=== PATIENT | female | born 1950 | race Caucasian/White ===

== ENCOUNTER 2023-06-05 13:12 | Outpatient (OUT) | payer MEDICARE, OTHER, SELFPAY ==
--- NOTE | 2023-06-05 13:16 | MM_ITS ---
Patient Name: KAHLIL MALONE MR#: [id number] : 1950 Exam Date: 06/05/2023 Ordering Doctor: DR VANI RODRÍGUEZ RADIOLOGY REPORT PROCEDURE: MM TOMOSYNTHESIS SCREENING BI COMPARISON: MG MAMM SCREEN BOONE W CAD, 03/21/2019. MG MAMM SCREEN BOONE W CAD, 03/15/2018. MG MAMM SCREEN BOONE W CAD, 03/02/2017. MG MAMM LT UNI W CAD DIG, 12/20/2012. INDICATIONS: Screening Calculator Name NCI Breast Cancer Risk Assessment Tool 5 Year Breast Cancer Risk 1.50% Lifetime Breast Cancer Risk 4.50% Personal Breast Cancer No Personal Ovarian Cancer No Treatments None Family Cancers None LOCATION: [facility] BREAST COMPOSITION: Extremely dense, which lowers the sensitivity of mammography. FINDINGS: DIAGNOSTIC CATEGORY 2--BENIGN FINDING: RIGHT BREAST: No significant suspicious finding. Innumerable scattered benign-appearing calcifications which continue to increase in number. LEFT BREAST: No significant suspicious finding. Innumerable scattered benign-appearing calcifications which continue to increase in number. RECOMMENDATIONS: ROUTINE MAMMOGRAM AND CLINICAL EVALUATION IN 12 MONTHS. PLEASE NOTE: A NORMAL MAMMOGRAM DOES NOT EXCLUDE THE POSSIBILITY OF BREAST CANCER. A CLINICALLY SUSPICIOUS PALPABLE LUMP SHOULD BE BIOPSIED. Dictated by: Raad Singh M.D. on 06/05/2023 at 15:28 Approved by: Raad Singh M.D. on 06/05/2023 at 15:32
--- NOTE | 2023-06-05 13:17 | US_ITS ---
The [address] [address] Patient Name: KAHLIL MALONE MRN: [id number] date: 1950 Sex: F Assigned Patient Location: MAMMO Current Patient Location: Accession/Order Number: [id number] Exam Date: 06/05/2023 13:20 Report Date: 06/07/2023 12:36 At the request of: VANI MULLER Procedure: US extremity nonvascular RT EXAMINATION: US extremity nonvascular RT HISTORY: Pain In Right Axilla M79.621 , lump for one month COMPARISON: No relevant comparison available. FINDINGS: 1. Slightly hyperechoic lymph node within right axilla 1.6 x 1.5 x 0.7 cm. US/US extremity nonvascular RT IMPRESSION: 1. Slightly prominent lymph node within right axilla corresponding to patient's palpable lump and area of tenderness; likely reactive. Consider follow-up ultrasound evaluation in 3-4 weeks if symptoms persist. Electronically authenticated by: JERRELL SHEN Date: 06/07/2023 12:36
== END 2023-06-05 13:13 | disposition home or self-care (01) ==
LOC: MAMMO 13:13
PROVIDERS: PCP Internal Medicine; Visit Provider Physician Assistant
DX: Z12.31 Encounter for screening mammogram for malignant neoplasm of breast (principal); M79.621 Pain in right upper arm; R59.0 Localized enlarged lymph nodes
CPT/HCPCS: 76882; 77063; 77067

== ENCOUNTER 2023-11-12 12:50 | Outpatient (OUT) | payer MEDICARE, OTHER, SELFPAY ==
--- OUTSIDE RECORDS SUMMARY | 2023-11-12 12:57 | XMS_ITS | CCD ---
Author Organization [facility] Care Team Providers Care Splunk Dashboard Developer Name Role Phone DR CHELA MENDOSA Admitting Unavailable DR CHELA MENDOSA Attending Unavailable DR CHELA MENDOSA Consulting Unavailable DR CHELA MENDOSA Primary Care Unavailable VANI MULLER Attending Unavailable VANI MULLER Attending Unavailable CHELA MENDOSA Attending Unavailable Allergies Allergy Classification Reported Allergen(s) Allergy Type Date of Onset Reaction(s) Facility (1 source) Penicillins Drug allergy (disorder) 6 [facility] (1 source) Sulfamethoxazole / Trimethoprim Drug Allergy 6 [facility] Problems Problem Classification Problem Date Documented Da te Episodic/Chronic Administrative/social admission (1 source) Other specified counseling; Translations: [OTHER SPECIFIED COUNSELING] Onset: 03-19-2022 Episodic Disorders of lipid metabolism (1 source) Mixed hyperlipidemia; Translations: [MIXED HYPERLIPIDEMIA] Onset: 03-19-2022 Chronic Osteoporosis (1 source) Age-related osteoporosis without current pathological fracture; Translations: [AGE-REL OSTEOPOR W/O CURR PATH FX] Onset: 03-19-2022 Chronic Other gastrointestinal disorders (1 source) Irritable bowel syndrome without diarrhea; Translations: [IRRITABLE BOWEL SYND W/O DIARRHEA] Onset: 03-19-2022 Chronic Other screening for suspected conditions (not mental disorders or infectious disease) (1 source) Abnormal results of thyroid function studies; Translations: [ABNORMAL RESULTS THR FUNCTION STDY] Onset: 03-19-2022 Episodic Spondylosis; intervertebral disc disorders; other back problems (1 source) Other spondylosis with radiculopathy, lumbar region; Translations: [OTH SPONDYLS RADICULOPATHY LUMB RGN] Onset: 03-19-2022 Chronic Spondylosis; intervertebral disc disorders; other back problems (1 source) Radiculopathy, site unspecified; Translations: [RADICULOPATHY SITE UNSPECIFIED] Onset: 03-19-2022 Episodic Results Test Name Value Interpretation Reference Range Facility CBC AUTO DIFFon 03-10-2022 BASO # 0.0 103/ul Normal 0.0-0.1 [facility] Comment on above: Performed By: #### C BC #### [facility] [address] [address] [address] Connor Shirley Basophils/100 WBC (Bld) 0.6 % Normal 0.2-2.0 [facility] Comment on above: Performed By: #### C BC #### [facility] [address] [address] [address] Connor Shirley EO # 0.1 103/ul Normal 0.0-0.7 [facility] Comment on above: Performed By: #### C BC #### [facility] [address] [place] [address] Dr. Connor Shirley Eosinophils/100 WBC (Bld) 1.0 % Normal 0.9-7.0 [facility] Comment on above: Performed By: #### C BC #### [facility] [address] [address] [address] Connor Shirley Erythrocyte distribution width (RBC) [Ratio] 13.0 % Normal 11.0-15.0 [facility] Comment on above: Performed By: #### C BC #### [facility] [address] [place] [address] Dr. Connor Shirley Hematocrit (Bld) [Volume fraction] 40.3 % Normal 36.0-48.0 [facility] Comment on above: Performed By: #### C BC #### [facility] [address] [address] [address] Connor Shirley Hemoglobin (Bld) [Mass/Vol] 13.1 g/dL Normal 12.0-16.0 [facility] Comment on above: Performed By: #### C BC #### [facility] [address] [place] [address] Dr. Connor Shirley IG # 0.02 10e3/ul Normal 0.00-0.03 [facility] Comment on above: Performed By: #### C BC #### [facility] [address] [place] [address] Dr. Connor Shirley IG % 0.3 % Normal 0.0-0.5 [facility] Comment on above: Performed By: #### C BC #### [facility] [address] [place] [address] Dr. Connor Shirley LYMPH # 2.5 103/ul Normal 1.2-3.8 [facility] Comment on above: Performed By: #### C BC #### [facility] [address] [place] [address] Dr. Connor Shirley Lymphocytes/100 WBC (Bld) 36.5 % Normal 20.5-60.0 [facility] Comment on above: Performed By: #### C BC #### [facility] [address] [place] [address] Dr. Connor Shirley MANUAL DIFF REQ NO Normal [facility] Comment on above: Performed By: #### C BC #### [facility] [address] [place] [address] Dr. Connor Shirley MCH (RBC) [Entitic mass] 32.3 pg Normal 26.7-34.0 [facility] Comment on above: Performed By: #### C BC #### [facility] [address] [place] [address] Dr. Connor Shirley MCHC (RBC) [Mass/Vol] 32.5 g/dL Normal 29.9-35.2 [facility] Comment on above: Performed By: #### C BC #### [facility] [address] [place] [address] Dr. Connor Shirley MCV (RBC) [Entitic vol] 99.3 fL Critically high 81.0-99.0 [facility] Comment on above: Performed By: #### C BC #### [facility] [address] [place] [address] Dr. Connor Shirley MONO # 0.3 103/ul Normal 0.3-0.8 [facility] Comment on above: Performed By: #### C BC #### [facility] [address] [place] [address] Dr. Connor Shirley Monocytes/100 WBC (Bld) 4.9 % Normal 1.7-12.0 [facility] Comment on above: Performed By: #### C BC #### [facility] [address] [place] [address] Dr. Connor Shirley NEUT # 3.8 103/ul Normal 1.4-6.5 [facility] Comment on above: Performed By: #### C BC #### [facility] [address] [place] [address] Dr. Connor Shirley Neutrophils/100 WBC (Bld) 56.7 % Normal 43.0-75.0 [facility] Comment on above: Performed By: #### C BC #### [facility] [address] [place] [address] Dr. Connor Shirley Platelet mean volume (Bld) [Entitic vol] 9.0 fL Critically low 9.5-13.5 [facility] Comment on above: Performed By: #### C BC #### [facility] [address] [place] [address] Dr. Connor Shirley PLT 258 103/ul Normal 150-450 [facility] Comment on above: Performed By: #### C BC #### [facility] [address] [place] [address] Dr. Connor Shirley RBC 4.06 106/ul Critically low 4.20-5.40 [facility] Comment on above: Performed By: #### C BC #### [facility] [address] [place] [address] Dr. Connor Shirley WBC 6.8 103/ul Normal 4.0-11.0 [facility] Comment on above: Performed By: #### C BC #### [facility] [address] [place] [address] Dr. Connor Shirley FREE T4on 03-10-2022 Free T4 [Mass/Vol] 1.10 ng/dL Normal 0.76-1.46 [facility] Comment on above: Performed By: #### F T4 #### [facility] [address] [place] [address] Dr. Connor Shirley LIPID PROFILEon 03-10-2022 CHOL-HDL RATIO NORM SEE BELOW Normal [facility] Comment on above: Result Comment: 3.3 - 4.4 LOW RISK 4.4 - 7.1 AVERAGE RISK 7.1 - 11.0 MODERATE RISK >11.0 HIGH RISK Performed By: #### C MP, TSH, LIPID #### [facility] [address] [address] [address] Connor Shirley Cholesterol [Mass/Vol] 169 mg/dL Normal <=200 [facility] Comment on above: Performed By: #### C MP, TSH, LIPID #### [facility] [address] [address] [address] Connor Shirley Cholesterol in HDL [Mass/Vol] 87 mg/dL Critically high 40-60 [facility] Comment on above: Performed By: #### C MP, TSH, LIPID #### [facility] [address] [address] [address] Connor Shirley Cholesterol in LDL [Mass/Vol] 64.6 mg/dL Normal [facility] Comment on above: Performed By: #### C MP, TSH, LIPID #### [facility] [address] [address] [address] Connor Shirley Cholesterol.total/C holesterol in HDL [Mass ratio] 1.9 {ratio} Normal [facility] Comment on above: Performed By: #### C MP, TSH, LIPID #### [facility] [address] [address] [address] Connor Shirley HDL NORMAL > or = 60 mg/dl - LO W CARDIOVASCULAR RISK <40 mg/dl - HIGH CARDIOVASCULAR RISK Normal [facility] Comment on above: Performed By: #### C MP, TSH, LIPID #### [facility] [address] [address] [address] Connor Shirley LDL CALC NORMAL SEE BELOW Normal [facility] Comment on above: Result Comment: <100 mg/dl OPTIMAL 100 - 129 mg/dl NEAR OR ABOVE OPTIMAL 130 - 159 mg/dl BORDERLINE HIGH 160 - 189 mg/dl HIGH >190 mg/dl VERY HIGH Performed By: #### C MP, TSH, LIPID #### [facility] [address] [address] [address] Connor Shirley Triglyceride [Mass/Vol] 87 mg/dL Normal <=150 [facility] Comment on above: Performed By: #### C MP, TSH, LIPID #### [facility] [address] [address] [address] Connor Shirley VLDL CALC 17.4 mg/dL Normal [facility] Comment on above: Performed By: #### C MP, TSH, LIPID #### [facility] [address] [address] [address] Connor Shirley PROF 14(COMP METB)on 022 Albumin [Mass/Vol] 4.5 g/dL Normal 3.4-5.0 [facility] Comment on above: Performed By: #### C MP, TSH, LIPID #### [facility] [address] [place] [address] Dr. Connor Shirley Albumin/Globulin [Mass ratio] 1.5 {ratio} Normal [facility] Comment on above: Performed By: #### C MP, TSH, LIPID #### [facility] [address] [address] [address] Connor Shirley ALP [Catalytic activity/Vol] 50 U/L Normal 46-116 [facility] Comment on above: Performed By: #### C MP, TSH, LIPID #### [facility] [address] [address] [address] Connor Shirley ALT [Catalytic activity/Vol] 24 U/L Normal 14-59 [facility] Comment on above: Performed By: #### C MP, TSH, LIPID #### [facility] [address] [address] [address] Connor Shirley Anion gap [Moles/Vol] 10.9 mmol/L Normal [facility] Comment on above: Performed By: #### C MP, TSH, LIPID #### [facility] [address] [address] [address] Connor Shirley AST [Catalytic activity/Vol] 18 U/L Normal 15-37 [facility] Comment on above: Performed By: #### C MP, TSH, LIPID #### [facility] [address] [address] [address] Connor Shirley Bilirubin [Mass/Vol] 1.2 mg/dL Critically high 0.2-1.0 [facility] Comment on above: Performed By: #### C MP, TSH, LIPID #### [facility] [address] [place] [address] Dr. Connor Shirley Calcium [Mass/Vol] 9.8 mg/dL Normal 8.5-10.1 [facility] Comment on above: Performed By: #### C MP, TSH, LIPID #### [facility] [address] [address] [address] Connor Shirley Chloride [Moles/Vol] 103 mmol/L Normal 98-107 [facility] Comment on above: Performed By: #### C MP, TSH, LIPID #### [facility] [address] [place] [address] Dr. Connor Shirley CO2 [Moles/Vol] 31.2 mmol/L Normal 21.0-32.0 [facility] Comment on above: Performed By: #### C MP, TSH, LIPID #### [facility] [address] [place] [address] Dr. Connor Shirley Creatinine [Mass/Vol] 0.60 mg/dL Normal 0.55-1.02 [facility] Comment on above: Performed By: #### C MP, TSH, LIPID #### [facility] [address] [place] [address] Dr. Connor Shirley EGFR-AF SLOVENIAN >60 Normal >=60 [facility] Comment on above: Performed By: #### C MP, TSH, LIPID #### [facility] [address] [place] [address] Dr. Connor Shirley EGFR-NON AF SLOVENIAN >60 Normal >=60 [facility] Comment on above: Performed By: #### C MP, TSH, LIPID #### [facility] [address] [place] [address] Dr. Connor Shirley Globulin (S) [Mass/Vol] 3.1 g/dL Normal [facility] Comment on above: Performed By: #### C MP, TSH, LIPID #### [facility] [address] [place] [address] Dr. Connor Shirley Glucose [Mass/Vol] 103 mg/dL Normal 74-106 [facility] Comment on above: Performed By: #### C MP, TSH, LIPID #### [facility] [address] [place] [address] Dr. Connor Shirley Potassium [Moles/Vol] 4.1 mmol/L Normal 3.5-5.1 [facility] Comment on above: Performed By: #### C MP, TSH, LIPID #### [facility] [address] [place] [address] Dr. Connor Shirley Protein [Mass/Vol] 7.6 g/dL Normal 6.4-8.2 [facility] Comment on above: Performed By: #### C MP, TSH, LIPID #### [facility] [address] [place] [address] Dr. Connor Shirley Sodium [Moles/Vol] 141 mmol/L Normal 136-145 [facility] Comment on above: Performed By: #### C MP, TSH, LIPID #### [facility] [address] [place] [address] Dr. Connor Shirley Urea nitrogen [Mass/Vol] 17.0 mg/dL Normal 7.0-18.0 [facility] Comment on above: Performed By: #### C MP, TSH, LIPID #### [facility] [address] [place] [address] Dr. Connor Shirley Urea nitrogen/Creatinine [Mass ratio] 28.3 mg/mg Normal [facility] Comment on above: Performed By: #### C MP, TSH, LIPID #### [facility] [address] [place] [address] Dr. Connor Shirley TSHon 03-10-2022 TSH 3.755 uIU/mL Critically high 0.358-3.740 [facility] Comment on above: Performed By: #### C MP, TSH, LIPID #### [facility] [address] [place], [place] [address] Dr. Connor Shirley [facility] Metabolic [facility] 03-07-2021 Albumin [Mass/Vol] 5.0 g/dL Normal 3.6-5.1 [facility] Comment on above: Performed By: #### C MP, FT3, LIPD, TSH, FT4 #### [facility] [address] [place] [address], [place] [id number] Albumin/Globulin [Mass ratio] 2.2 {ratio} Normal 1.0-2.5 [facility] Comment on above: Performed By: #### C MP, FT3, LIPD, TSH, FT4 #### [facility] [address] [place], [place] [id number] ALP [Catalytic activity/Vol] 61 U/L Normal 35-119 [facility] Comment on above: Performed By: #### C MP, FT3, LIPD, TSH, FT4 #### [facility] [address] [place], [place] [id number] ALT [Catalytic activity/Vol] 23 U/L Normal 6-33 [facility] Comment on above: Result Comment: 02/20 Female reference range changed. Performed By: #### C MP, FT3, LIPD, TSH, FT4 #### [facility] [address] [place], [place] [id number] Anion gap [Moles/Vol] 18 mmol/L Normal 12-20 [facility] Comment on above: Result Comment: Effe ctive 03/28/2019 reference range changed. Performed By: #### C MP, FT3, LIPD, TSH, FT4 #### [facility] [address] [place], [place] [id number] AST [Catalytic activity/Vol] 20 U/L Normal 9-34 [facility] Comment on above: Performed By: #### C MP, FT3, LIPD, TSH, FT4 #### [facility] [address] [place], [place] [id number] Bilirubin [Mass/Vol] 0.94 mg/dL Normal 0.30-1.20 [facility] Comment on above: Performed By: #### C MP, FT3, LIPD, TSH, FT4 #### [facility] [address] [place], [place] [id number] BUN/CREA 28 Ratio High 6-22 [facility] Comment on above: Performed By: #### C MP, FT3, LIPD, TSH, FT4 #### [facility] [address] [place], [place] [id number] Calcium [Mass/Vol] 10.9 mg/dL High 8.6-10.2 [facility] Comment on above: Performed By: #### C MP, FT3, LIPD, TSH, FT4 #### [facility] [address] [place], [place] [id number] Chloride [Moles/Vol] 106 mmol/L Normal 98-107 [facility] Comment on above: Performed By: #### C MP, FT3, LIPD, TSH, FT4 #### [facility] [address] [place], [place] [id number] CO2 [Moles/Vol] 25 mmol/L Normal 20-31 [facility] Comment on above: Performed By: #### C MP, FT3, LIPD, TSH, FT4 #### [facility] [address] [place], [place] [id number] Creatinine [Mass/Vol] 0.5 mg/dL Low 0.6-1.4 [facility] Comment on above: Performed By: #### C MP, FT3, LIPD, TSH, FT4 #### [facility] [address] [place], [place] [id number] eGFRAA 136 mL/min/1.73m2 Normal >60 [facility] Comment on above: Performed By: #### C MP, FT3, LIPD, TSH, FT4 #### [facility] [address] [place], [place] [id number] eGFRNAA 112 mL/min/1.73m2 Normal >60 [facility] Comment on above: Performed By: #### C MP, FT3, LIPD, TSH, FT4 #### [facility] [address] [place], [place] [id number] Globulin (S) [Mass/Vol] 2.3 g/dL Normal 1.9-3.7 [facility] Comment on above: Performed By: #### C MP, FT3, LIPD, TSH, FT4 #### [facility] [address] [place], [place] [id number] Glucose [Mass/Vol] 104 mg/dL High 65-99 [facility] Comment on above: Result Comment: For FASTING Glucose --- ADA reference ranges: Normal 65-99 mg/dl Prediabetes 100-125 Diabetes >/= 126 Performed By: #### C MP, FT3, LIPD, TSH, FT4 #### [facility] [address] [place], [place] [id number] Potassium [Moles/Vol] 4.5 mmol/L Normal 3.5-5.5 [facility] Comment on above: Performed By: #### C MP, FT3, LIPD, TSH, FT4 #### [facility] [address] [place], [place] [id number] Protein [Mass/Vol] 7.3 g/dL Normal 6.1-8.1 [facility] Comment on above: Performed By: #### C MP, FT3, LIPD, TSH, FT4 #### [facility] [address] [place], [place] [id number] Sodium [Moles/Vol] 144 mmol/L Normal 135-146 [facility] Comment on above: Performed By: #### C MP, FT3, LIPD, TSH, FT4 #### [facility] [address] [place], [place] [id number] Urea nitrogen [Mass/Vol] 15 mg/dL Normal 7-25 [facility] Comment on above: Performed By: #### C MP, FT3, LIPD, TSH, FT4 #### [facility] [address] [place], [place] [id number] Free T3on 03-07-2021 FT3 2.92 pg/mL Normal 2.00-4.40 [facility] Comment on above: Performed By: #### C MP, FT3, LIPD, TSH, FT4 #### [facility] [address] [place], [place] [id number] Free T4on 03-07-2021 Free T4 [Mass/Vol] 1.14 ng/dL Normal 0.80-1.80 [facility] Comment on above: Performed By: #### C MP, FT3, LIPD, TSH, FT4 #### [facility] [address] [place], [place] [id number] Lipid Panelon 03-07-2021 Cholesterol [Mass/Vol] 201 mg/dL High 125-200 [facility] Comment on above: Result Comment: Low risk < 200mg/dL Borderline risk 201-239 mg/dl High risk > or equal to 240 Performed By: #### C MP, FT3, LIPD, TSH, FT4 #### [facility] [address] [place], [place] [id number] Cholesterol in HDL [Mass/Vol] 73 mg/dL Normal >40 [facility] Comment on above: Result Comment: High Cardiovascular Risk HDL <40 mg/dL Low Cardiovascular Risk HDL > or equal to 60 mg/dl Performed By: #### C MP, FT3, LIPD, TSH, FT4 #### [facility] [address] [place], [place] [id number] Cholesterol in LDL [Mass/Vol] 105 mg/dL Normal [facility] Comment on above: Result Comment: LDL ATP III CLASSIFICATION LDL less than 100 mg/dl Optimal LDL 100-129 mg/dl Near or above optimal LDL 130-159 Borderline high LDL 160-189 High LDL greater than 189 mg/dl Very High Performed By: #### C MP, FT3, LIPD, TSH, FT4 #### [facility] [address] [place], [place] [id number] Cholesterol in VLDL [Mass/Vol] 23 mg/dL Normal [facility] Comment on above: Performed By: #### C MP, FT3, LIPD, TSH, FT4 #### [facility] [address] [place], [place] [id number] Cholesterol.total/C holesterol in HDL [Mass ratio] 3 {ratio} Normal [facility] Comment on above: Performed By: #### C MP, FT3, LIPD, TSH, FT4 #### [facility] [address] [place], [place] [id number] Triglyceride [Mass/Vol] 113 mg/dL Normal 30-150 [facility] Comment on above: Result Comment: TRIG ATPIII CLASSIFICATIONS TRIG less than 150 mg/dl Normal TRIG 150-199 mg/dl Borderline High TRIG 200-500 mg/dl High TRIG greather than 500 mg/dl Very High Performed By: #### C MP, FT3, LIPD, TSH, FT4 #### [facility] [address] [place], [place] [id number] TSHon 03-07-2021 TSH 6.960 uIU/mL High 0.400-4.500 [facility] Comment on above: Performed By: #### C MP, FT3, LIPD, TSH, FT4 #### [facility] [address] [place], [place] [id number] Encounters Encounter Date Encounter Type Care Provider Facility Start: 11-05-2023 End: 11-05-2023 ambulatory CHELA MENDOSA Not Available Start: 05-19-2023 End: 05-19-2023 ambulatory VANI MULLER Not Available Start: 03-30-2023 End: 03-30-2023 ambulatory VANI MULLER Not Available Start: 03-19-2022 Encounter for genera l adult medical examination without abnormal findings DR CHELA MENDOSA [facility] Start: 03-10-2022 End: 03-11-[address] CHELA MENDOSA Facility:[facility] Start: 03-10-2022 End: 03-11-2022 Encounter for general adult medical examination without abnormal findings DR CHELA MENDOSA Facility:[facility] Payers Date Payer Category Payer Medicare [id number] 1957 Unknown [id number] 1950 Unknown [id number] 2.16.84 [id number] 1950 Unknown [id number] 2.16.84 [id number] 1950 Unknown [id number] 2.16.84 [id number] 1950 Unknown [id number] 2.16.84 [id number] Summary Purpose Family History No Family History Records FoundNo Family History Records FoundNo Family History Records Found Advance Directives No Advanced Directives Records FoundNo Advanced Directives Records FoundNo Advanced Directives Records Found Additional Source Comments INFORMATION SOURCE (unrecogn ized section and content) DATE CREATED AUTHOR 03/08/2021 [facility]ical Specialist DATE CREATED AUTHOR AUTHOR'S ORGANIZ ATION 03/19/2022 [facility] pital DATE CREATED AUTHOR AUTHOR'S ORGANIZ ATION 11/07/2023 [facility] FOR RECORDS PERTAINING TO PATIENTS WHO ARE OR HAVE BEEN ENROLLED IN A CHEMICAL DEPENDENCY/SUBSTANCEABUSE PROGRAM, SOME INFORMATION MAY BE OMITTED. This clinical summary was aggregated from multiple sources. Caution should be exercised in using it in the provision of clinical care. This summary normalizes information from multiple sources, and as a consequence, information in this document may materially change the coding, format and clinical context of patient data. In addition, data may be omitted in some cases. CLINICAL DECISIONS SHOULD BE BASED ON THE PRIMARY CLINICAL RECORDS. [facility] [employer] provides no warranty or guarantee of the accuracy or completeness of information in this document.
--- NOTE | 2023-11-12 14:17 | CT_ITS ---
The [address] [address] Patient Name: KAHLIL MALONE MRN: [id number] date: 1950 Sex: F Assigned Patient Location: CT Current Patient Location: CT Accession/Order Number: [id number] Exam Date: 11/12/2023 14:05 Report Date: 11/12/2023 14:45 At the request of: CHELA MENDOSA Procedure: CT abdomen pelvis w con EXAM: CT scan of the abdomen and pelvis using 100 mL of IV iodinated contrast. Oral contrast. Dose reduction technique used: Automated exposure control and/or adjustment of the mA and/or kV according to patient size and/or use of iterative reconstruction technique. REASON FOR EXAM: lower abdominal pain COMPARISON: CT scan dated 06/07/2018 FINDINGS: Cholelithiasis. Grade 1 anterolisthesis of L4 on L5 and L5-S1. Mild diffuse left adrenal thickening. Small bilateral renal cysts. Hysterectomy. Small hepatic cyst versus hemangioma. Colonic diverticulosis. Hysterectomy. 5 mm left lower lobe solid pulmonary nodule. 2-3 mm subpleural solid left lower lobe pulmonary nodule. These are chronic and likely benign. No evidence of appendicitis. No free fluid in the abdomen or pelvis. No free intraperitoneal air. No dilated or thickened loops of small bowel or colon. No hydronephrosis or obstructing renal or ureteral calculi. Liver, pancreas, spleen, bilateral kidneys, and bilateral adrenal glands are otherwise unremarkable. No lymphadenopathy in the abdomen or pelvis. Remainder unremarkable. CT/CT abdomen pelvis w con IMPRESSION: 1. No acute abnormalities in the abdomen or pelvis. 2. Cholelithiasis. Electronically authenticated by: TAYLER IBARRA Date: 11/12/2023 14:45
== END 2023-11-12 12:51 | disposition home or self-care (01) ==
LOC: CT 12:50
PROVIDERS: PCP Internal Medicine; Visit Provider Internal Medicine
DX: R10.30 Lower abdominal pain, unspecified (principal); K80.20 Calculus of gallbladder without cholecystitis without obstruction
CPT/HCPCS: 74177; Q9967